=== PATIENT | female | born 1980 | race Caucasian/White ===

== ENCOUNTER → 2017-05-20 | Outpatient (CLI) | payer BC ==
[~2017-05-20] MED LIST: DOCU100C37 PO; IBUP-1780 PO; OXYC-465 PO; PREN1TAB71 PO
== END ==
LOC: LABNPT 11:16
PROVIDERS: ATTEND Obstetrics & Gynecology
DX: O28.8 Other abnormal findings on antenatal screening of mother (principal); Z3A.00 Weeks of gestation of pregnancy not specified
CPT/HCPCS: 82570; 84156

== ENCOUNTER 2017-06-07 07:25 | Inpatient (IN) | payer BC ==
[~2017-06-07] VITALS: Ht 165.1 cm; Wt 97.5 kg
[2017-06-07] VITALS (66 sets, daily range): BP systolic 100–173; BP diastolic 53–98
--- OUTSIDE RECORDS SUMMARY | 2017-06-07 07:48 | XMS REPORT ---
Author Author [facility] Organization [facility] Address [address] [place], [place] [id number] Care Team Providers Care Plant Superintendent Name Role Phone PCP Unavailable Allergies and Adverse Reactions Name Reaction Notes Augmentin yeast infection Plan of Treatment Not available. Medications Name Start Date Expiration Date SIG Comments Macrobid Oral capsule 100 mg 12/30/2012 01/06/2013 take 1 capsule (100 mg) by oral route every 12 hours with food for 7 days Discontinued Name Start Date Discontinued Date SIG Comments propranolol Oral tablet 10 mg 09/23/2012 take 1 tablet by oral route 4 times a day as needed Mirena Intrauterine IUD 20 mcg/24 hour (5 years) 06/12/2013 01/14/2015 place 1 device by intrauterine route Problem List Description Status Onset heart murmur Active Migraine Active Hypertension Active Vital Signs Date Time BP-Sys(mm[Hg] BP-Maribeth(mm[Hg]) HR(bpm) RR(rpm) Temp WT HT HC BMI BSA BMI Percentile O2 Sat(%) 01/14/2015 7:49:00 PM 79 bpm 18 rpm 98.2 F 185 lbs 100 % 09/02/2014 10:56:00 AM 145 mmHg 96 mmHg 68 bpm 98.7 F 187 lbs 65 in 31.1181 kg/m 1.9723 m 06/21/2014 3:44:00 PM 130 mmHg 89 mmHg 70 bpm 98.6 F 193 lbs 65 in 32.12 kg/m2 2.00 m2 08/04/2013 2:29:00 PM 110 mmHg 72 mmHg 71 bpm 16 rpm 97.8 F 190.375 lbs 65 in 31.68 kg/m2 1.99 m 99 % 07/27/2013 1:34:00 PM 141 mmHg 94 mmHg 68 bpm 98.6 F 191 lbs 65 in 31.7837 kg/m 1.99 m2 06/12/2013 10:37:00 AM 131 mmHg 89 mmHg 67 bpm 97.3 F 192 lbs 65 in 31.95 kg/m2 1.9985 m 06/01/2013 9:34:00 AM 132 mmHg 93 mmHg 64 bpm 97.7 F 191 lbs 65 in 31.7837 kg/m 1.99 m2 08/25/2012 11:29:00 AM 142 mmHg 85 mmHg 76 bpm 173 lbs 65 in 28.79 kg/m2 1.8971 m Social History Name Description Comments Alcohol Rarely 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 History of Procedures Date Ordered Description Order Status 08/25/2012 12:00 AM URINE TEST Reviewed 08/25/2012 12:00 AM CYTOPATH C/V THIN LAYER Returned 08/25/2012 12:00 AM SPECIMEN HANDLING OFFICE-LAB Reviewed 08/25/2012 12:00 AM N.GONORRHOEAE DNA AMP PROB Returned 08/25/2012 12:00 AM CHLAMYDIA CULTURE Returned 08/25/2012 12:00 AM OBSTETRIC PANEL Returned 08/25/2012 12:00 AM HIV-1ANTIBODY Returned 08/25/2012 12:00 AM URINALYSIS AUTO W/SCOPE Returned 08/25/2012 12:00 AM OB US < 14 WKS SINGLE FETUS Reviewed 09/24/2012 12:00 AM COMPREHEN METABOLIC PANEL Returned 09/24/2012 12:00 AM LACTATE (LD) (LDH) ENZYME Returned 09/24/2012 12:00 AM ASSAY OF PROTEIN SERUM Returned 09/24/2012 12:00 AM ASSAY OF BLOOD/URIC ACID Returned 09/24/2012 12:00 AM ELECTROCARDIOGRAM COMPLETE Reviewed 11/04/2012 12:00 AM ALPHA-FETOPROTEIN SERUM Reviewed 12/01/2012 12:00 AM OB US >/=14 WKS SNGL FETUS Returned 01/13/2013 12:00 AM OB US >/=14 WKS SNGL FETUS Returned 01/21/2013 12:00 AM GLUCOSE TEST Returned 01/21/2013 12:00 AM COMPLETE CBC W/AUTO DIFF WBC Returned 01/21/2013 12:00 AM Type and screen Returned 01/21/2013 12:00 AM COMPREHEN METABOLIC PANEL Returned 01/21/2013 12:00 AM LACTATE (LD) (LDH) ENZYME Returned 01/21/2013 12:00 AM ASSAY OF BLOOD/URIC ACID Returned 01/22/2013 12:00 AM GLUCOSE TOLERANCE TEST (GTT) Returned 03/18/2013 12:00 AM CULTURE OTHR SPECIMN AEROBIC Returned 03/30/2013 12:00 AM OB US >/=14 WKS SNGL FETUS Returned 03/31/2013 12:00 AM ASSAY OF PROTEIN SERUM Reviewed 04/13/2013 12:00 AM COMPLETE CBC W/AUTO DIFF WBC Returned 04/13/2013 12:00 AM COMPREHEN METABOLIC PANEL Returned 04/13/2013 12:00 AM ASSAY OF BLOOD/URIC ACID Returned 04/13/2013 12:00 AM LACTATE (LD) (LDH) ENZYME Returned 06/01/2013 12:00 AM N.GONORRHOEAE DNA AMP PROB Reviewed 06/01/2013 12:00 AM CHYLMD TRACH DNA AMP PROBE Reviewed 06/12/2013 12:00 AM URINE TEST Reviewed 06/12/2013 12:00 AM INSERT INTRAUTERINE DEVICE Reviewed 08/04/2013 12:00 AM METABOLIC PANEL TOTAL CA Reviewed 08/04/2013 12:00 AM COMPLETE CBC W/AUTO DIFF WBC Reviewed 08/04/2013 12:00 AM LIPID PANEL Reviewed 08/04/2013 12:00 AM ASSAY THYROID STIM HORMONE Reviewed 06/21/2014 12:00 AM SPECIMEN HANDLING OFFICE-LAB Reviewed 06/21/2014 12:00 AM CYTOPATH C/V THIN LAYER Returned 09/02/2014 12:00 AM REMOVE INTRAUTERINE DEVICE Reviewed Results Summary Data and Description Results 08/25/2012 1:24 PM WBC 8.1 RBC 4.55 HGB 13.70 g/dLHCT 38.80 %MCV 85.0 fLMCH 30.10 pgMCHC 35.30 g/dLRDW CV 12.70 %MPV 9.40 fLPLT 353 %NEUT 76.40 %%LYMP 14.30 %%MONO 6.40 %%EOS 2.40 %%BASO 0.50 %#NEUT 6.17 #LYMP 1.15 #MONO 0.52 #EOS 0.19 #BASO 0.04 COLOR YELLOW APPEARANCE CLEAR SPEC GRAV >=1.030 pH 6.0 PROTEIN 30 GLUCOSE NEGATIVE KETONE NEGATIVE BILIRUBIN NEGATIVE BLOOD NEGATIVE NITRITE NEGATIVE LEUK SCREEN NEGATIVE CASTS/LPF NEGATIVE CRYSTALS NEGATIVE MUCOUS THRDS NEGATIVE BACTERIA FEW EPITH CELLS FEW SQUAMOUS TRICHOMONAS NEGATIVE YEAST NEGATIVE ABO/Rh Type A Positive RUBELLA 18.0 IU/mLHIV AG/AB COMBO 0.17 09/24/2012 3:00 PM GLUCOSE 85.0 mg/dLSODIUM 136.0 mmol/LPOTASSIUM 4.10 mmol/ LCHLORIDE 101.0 mmol/LCO2 24.0 mmol/LBUN 10.0 mg/dLCREATININE 0.70 mg/dLSGOT/ AST 12.0 IU/LSGPT/ALT 7.0 IU/LALK PHOS 54.0 IU/LTOTAL PROTEIN 7.90 g/dLALBUMIN 4.60 g/dLTOTAL BILI 0.30 mg/dLCALCIUM 10.20 mg/dLeGFR 60 URIC ACID 4.5 mg/dLLDH 170.0 IU/L 12/30/2012 11:00 AM COLOR YELLOW APPEARANCE HAZY SPEC GRAV 1.015 pH 7.0 PROTEIN 30 GLUCOSE NEGATIVE KETONE NEGATIVE BILIRUBIN NEGATIVE BLOOD NEGATIVE NITRITE NEGATIVE LEUK SCREEN TRACE CASTS/LPF NEGATIVE CRYSTALS 1+ AMORPHOUS MUCOUS THRDS 1+ BACTERIA 2++ EPITH CELLS 1+ SQUAMOUS TRICHOMONAS NEGATIVE YEAST NEGATIVE 01/21/2013 4:00 PM ABO/Rh Type A Positive LDH 191.0 IU/LURIC ACID 4.9 mg/ dLGLUCOSE 144.0 mg/dLSODIUM 137.0 mmol/LPOTASSIUM 3.40 mmol/LCHLORIDE 103.0 mmol /LCO2 22.0 mmol/LBUN 5.0 mg/dLCREATININE 0.60 mg/dLSGOT/AST 13.0 IU/LSGPT/ALT 11.0 IU/LALK PHOS 71.0 IU/LTOTAL PROTEIN 6.10 g/dLALBUMIN 3.60 g/dLTOTAL BILI 0.20 mg/dLCALCIUM 9.20 mg/dLeGFR 60 WBC 10.7 RBC 3.88 HGB 11.80 g/dLHCT 34.40 % MCV 89.0 fLMCH 30.40 pgMCHC 34.30 g/dLRDW CV 13.60 %MPV 9.80 fLPLT 253 %NEUT 82.70 %%LYMP 11.40 %%MONO 4.20 %%EOS 1.50 %%BASO 0.20 %#NEUT 8.82 #LYMP 1.22 # MONO 0.45 #EOS 0.16 #BASO 0.02 04/03/2013 9:07 AM PROTEIN UR 26.0 mg/dLPROTEIN UR 24H 442.0 mg/24 hr 04/04/2013 8:25 PM GLUCOSE 91.0 mg/dLSODIUM 138.0 mmol/LPOTASSIUM 3.60 mmol/ LCHLORIDE 105.0 mmol/LCO2 24.0 mmol/LBUN 6.0 mg/dLCREATININE 0.70 mg/dLSGOT/AST 14.0 IU/LSGPT/ALT 9.0 IU/LALK PHOS 173.0 IU/LTOTAL PROTEIN 6.40 g/dLALBUMIN 3.20 g/dLTOTAL BILI 0.30 mg/dLCALCIUM 9.90 mg/dLeGFR 60 LDH 210.0 IU/LURIC ACID 5.6 mg/dLWBC 10.8 RBC 3.97 HGB 11.70 g/dLHCT 34.50 %MCV 87.0 fLMCH 29.50 pgMCHC 33.90 g/dLRDW CV 14.50 %MPV 10.0 fLPLT 224 %NEUT 80.30 %%LYMP 11.90 %%MONO 6.0 % %EOS 1.50 %%BASO 0.30 %#NEUT 8.71 #LYMP 1.29 #MONO 0.65 #EOS 0.16 #BASO 0.03 04/13/2013 10:33 AM WBC 8.9 RBC 4.24 HGB 12.50 g/dLHCT 36.90 %MCV 87.0 fLMCH 29.50 pgMCHC 33.90 g/dLRDW CV 14.90 %MPV 10.60 fLPLT 210 %NEUT 82.20 %%LYMP 11.10 %%MONO 5.0 %%EOS 1.50 %%BASO 0.20 %#NEUT 7.30 #LYMP 0.99 #MONO 0.44 #EOS 0.13 #BASO 0.02 URIC ACID 6.3 mg/dLLDH 165.0 IU/LGLUCOSE 105.0 mg/dLSODIUM 136.0 mmol/LPOTASSIUM 3.70 mmol/LCHLORIDE 104.0 mmol/LCO2 23.0 mmol/LBUN 6.0 mg/ dLCREATININE 0.70 mg/dLSGOT/AST 15.0 IU/LSGPT/ALT 11.0 IU/LALK PHOS 186.0 IU/ LTOTAL PROTEIN 6.70 g/dLALBUMIN 3.20 g/dLTOTAL BILI 0.40 mg/dLCALCIUM 9.40 mg/ dLeGFR 60 04/15/2013 6:45 AM WBC 9.5 RBC 4.19 HGB 12.10 g/dLHCT 36.60 %MCV 87.0 fLMCH 28.90 pgMCHC 33.10 g/dLRDW CV 15.0 %MPV 10.60 fLPLT 212 %NEUT 80.0 %%LYMP 11.0 % %MONO 7.10 %%EOS 1.50 %%BASO 0.40 %#NEUT 7.60 #LYMP 1.04 #MONO 0.67 #EOS 0.14 # BASO 0.04 ABO/Rh Type A Positive GLUCOSE 80.0 mg/dLSODIUM 138.0 mmol/LPOTASSIUM 3.80 mmol/LCHLORIDE 106.0 mmol/LCO2 22.0 mmol/LBUN 6.0 mg/dLCREATININE 0.60 mg/ dLSGOT/AST 13.0 IU/LSGPT/ALT 6.0 IU/LALK PHOS 193.0 IU/LTOTAL PROTEIN 6.30 g/ dLALBUMIN 3.20 g/dLTOTAL BILI 0.30 mg/dLCALCIUM 9.50 mg/dLeGFR 60 URIC ACID 5.2 mg/dLLDH 198.0 IU/L 04/16/2013 6:59 AM WBC 16.4 RBC 3.66 HGB 10.50 g/dLHCT 31.60 %MCV 86.0 fLMCH 28.70 pgMCHC 33.20 g/dLRDW CV 14.90 %MPV 10.40 fLPLT 228 %NEUT 91.30 %%LYMP 3.50 %%MONO 5.10 %%EOS 0.0 %%BASO 0.10 %#NEUT 15.00 #LYMP 0.58 #MONO 0.84 #EOS 0.00 #BASO 0.01 GLUCOSE 174.0 mg/dLSODIUM 137.0 mmol/LPOTASSIUM 3.60 mmol/ LCHLORIDE 106.0 mmol/LCO2 22.0 mmol/LBUN 4.0 mg/dLCREATININE 0.70 mg/dLSGOT/AST 15.0 IU/LSGPT/ALT 6.0 IU/LALK PHOS 171.0 IU/LTOTAL PROTEIN 5.40 g/dLALBUMIN 2.70 g/dLTOTAL BILI 0.50 mg/dLCALCIUM 8.0 mg/dLeGFR 60 URIC ACID 5.5 mg/dLLDH 211.0 IU/L 04/17/2013 6:35 AM WBC 11.0 RBC 3.42 HGB 9.80 g/dLHCT 30.60 %MCV 90.0 fLMCH 28.70 pgMCHC 32.0 g/dLRDW CV 15.30 %MPV 9.90 fLPLT 214 %NEUT 76.80 %%LYMP 13.40 %%MONO 6.20 %%EOS 3.10 %%BASO 0.50 %#NEUT 8.42 #LYMP 1.47 #MONO 0.68 #EOS 0.34 # BASO 0.05 08/04/2013 3:30 PM WBC 6.6 RBC 4.75 HGB 13.40 g/dLHCT 39.30 %MCV 83.0 fLMCH 28.20 pgMCHC 34.10 g/dLRDW CV 13.50 %MPV 9.30 fLPLT 321 %NEUT 64.70 %%LYMP 21.30 %%MONO 8.10 %%EOS 4.80 %%BASO 1.10 %#NEUT 4.29 #LYMP 1.41 #MONO 0.54 #EOS 0.32 #BASO 0.07 GLUCOSE 91.0 mg/dLSODIUM 139.0 mmol/LPOTASSIUM 3.80 mmol/ LCHLORIDE 104.0 mmol/LCO2 25.0 mmol/LBUN 13.0 mg/dLCREATININE 0.80 mg/dLCALCIUM 9.50 mg/dLeGFR >60 mL/min/1.73 [id number] 146.0 mg/dLCHOLESTEROL 174.0 mg/ dLHDL 56.0 mg/dLLDL (CALC) 89.0 mg/dLTSH 0.950 uIU/mL History Of Immunizations Not available. History of Past Illness Name Date of Onset Comments Hypertension heart murmur Migraine test confirmed positive Aug 25 2012 11:48AM Pelvic Pain Aug 25 2012 11:48AM Care, High Risk Sep 24 2012 2:26PM Hypertension Sep 24 2012 2:26PM , First Normal Nov 04 2012 10:54AM , First Normal Nov 04 2012 2:56PM Fetus or affected by complications of placenta, cord, and membranes; other and unspecified morphological and functional abnormalities of placenta Dec 17 2012 2:13PM Antepartum Transient Hypertension Dec 17 2012 2:13PM , First Normal Jan 21 2013 3:03PM Hypertension Jan 21 2013 3:03PM Impaired glucose tolerance test (oral) Jan 22 2013 1:42PM Group B Strep Screening, Mar 18 2013 11:19AM Hypertension Mar 23 2013 2:27PM Care, High Risk Mar 31 2013 11:02AM Hypertension Mar 31 2013 11:02AM , High Risk Apr 13 2013 10:29AM Proteinuria Apr 13 2013 10:29AM Follow-up, Routine Jun 01 2013 9:41AM Contraceptive Counseling Jun 01 2013 9:41AM Special investigations and examinations; examination or test; examination or test, negative result Jun 12 2013 11:01AM IUD insertion Jun 12 2013 10:42AM IUD Check/Removal/Management/Reinsertion Jul 27 2013 1:42PM Hypertension Aug 04 2013 2:31PM Migraine Aug 04 2013 2:31PM Preeclampsia Aug 04 2013 2:31PM Routine gynecological examination Jun 21 2014 3:53PM IUD removal Sep 02 2014 11:30AM Upper respiratory disease Jan 14 2015 7:50PM Payers Insurance Name Company Name Plan Name Plan Number Policy Number Policy Group Number Start Date [facility] [id number] N/A History of Encounters Visit Date Visit Type Provider 01/14/2015 Office visit Yvonne VALENZUELA 09/02/2014 Office visit Glenn Myers MD 06/21/2014 Office visit Yaquelin Jones HAND CLOTH CUTTER 08/04/2013 Office visit Janet Prajapati MD 07/27/2013 Office visit Glenn Myers MD 06/12/2013 Office visit Glenn Myers MD 06/01/2013 Office visit Glenn Myers MD 04/16/2013 [facility] Glenn Myers MD 04/13/2013 Office visit Yanely Park MD 04/06/2013 Office visit Glenn Myers MD 04/04/2013 [facility] Yanely Park MD 03/31/2013 Office visit Glenn Myers MD 03/23/2013 Office visit Glenn Myers MD 03/18/2013 Office visit Glenn Myers MD 03/06/2013 Office visit Yanely Park MD 02/19/2013 Office visit Glenn Myers MD 02/04/2013 Office visit Glenn Myers MD 01/21/2013 Office visit Glenn Myers MD 01/07/2013 Office visit Glenn Myers MD 12/17/2012 Office visit Glenn Myers MD 11/19/2012 Office visit Gelnn Myers MD 10/29/2012 Office visit Glenn Myers MD 10/06/2012 Office visit Glenn Myers MD 09/24/2012 Office visit Glenn Myers MD 09/24/2012 [facility] Jorge A Bowden MD 09/08/2012 Office visit Glenn Myers MD 08/25/2012 Office visit Glenn Myers MD
--- OUTSIDE RECORDS SUMMARY | 2017-06-07 07:49 | XMS REPORT ---
Author Author Glenn Myers [facility] Address [address] [place], [place] [id number] Care Team Providers Care Artillery Maintenance Supervisor Name Role Phone Glenn Myers PCP Allergies and Adverse Reactions Name Reaction Notes Augmentin yeast infection Plan of Treatment Not available. Medications Active Name Start Date Estimated Completion Date SIG Comments Diclegis 10-10 mg oral tablet,delayed release (DR/EC) 02/10/2015 take 1 tablet by oral route in the morning and 2 tablets at bedtime Name Start Date Expiration Date SIG Comments Macrobid 100 mg oral capsule 12/30/2012 01/06/2013 take 1 capsule (100 mg) by oral route every 12 hours with food for 7 days Discontinued Name Start Date Discontinued Date SIG Comments propranolol 10 mg oral tablet 09/23/2012 take 1 tablet by oral route 4 times a day as needed Mirena 20 mcg/24 hr (5 years) intrauterine intrauterine device 06/12/201301/14 place 1 device by intrauterine route Problem List Description Status Onset heart murmur Active Migraine Active Hypertension Active Vital Signs Date Time BP-Sys(mm[Hg] BP-Maribeth(mm[Hg]) HR(bpm) RR(rpm) Temp WT HT HC BMI BSA BMI Percentile O2 Sat(%) 02/10/2015 1:26:00 PM 138 mmHg 86 mmHg 70 bpm 98 F 189 lbs 65 in 31.45 kg/m2 1.98 m2 01/14/2015 7:49:00 PM 79 bpm 18 rpm [...] rpm 97.8 F 190.375 lbs 65 in 31.6797 kg/m 1.99 m 99 % 07/27/2013 1:34:00 PM 141 mmHg 94 mmHg 68 bpm 98.6 F 191 lbs 65 in 31.78 kg/m2 1.99 m2 06/12/2013 10:37:00 AM 131 mmHg 89 mmHg 67 bpm 97.3 F 192 lbs 65 in 31.9501 kg/m 1.9985 m 06/01/2013 9:34:00 AM 132 mmHg 93 mmHg 64 bpm 97.7 F 191 lbs 65 in 31.78 kg/m2 1.99 m2 08/25/2012 11:29:00 AM 142 mmHg 85 mmHg 76 bpm 173 lbs 65 in 28.7884 kg/m 1.8971 m Social History Name Description Comments Alcohol Current some day Rarely Tobacco Never smoker [employer] raise min[employer] History of Procedures Date Ordered Description Order [...] 06/12/2013 12:00 AM INSERT INTRAUTERINE DEVICE Reviewed 06/12/2013 12:00 AM Mirena Reviewed 08/04/2013 12:00 AM METABOLIC PANEL TOTAL CA Reviewed 08/04/2013 12:00 AM COMPLETE CBC W/AUTO DIFF WBC Reviewed 08/04/2013 12:00 AM LIPID PANEL Reviewed 08/04/2013 12:00 AM ASSAY THYROID STIM HORMONE Reviewed 06/21/2014 12:00 AM SPECIMEN HANDLING OFFICE-LAB Reviewed 06/21/2014 12:00 AM CYTOPATH C/V THIN LAYER Returned 09/02/2014 12:00 AM REMOVE INTRAUTERINE DEVICE Reviewed 02/10/2015 1:34 PM URINE TEST Reviewed 02/10/2015 12:00 AM N.GONORRHOEAE DNA AMP PROB Returned 02/10/2015 12:00 AM CHLAMYDIA CULTURE Returned 02/10/2015 12:00 AM HIV-1ANTIBODY Returned 02/10/2015 12:00 AM CYTOPATH C/V THIN LAYER Returned 02/10/2015 12:00 AM URINALYSIS AUTO W/SCOPE Returned 02/10/2015 12:00 AM OBSTETRIC PANEL Returned 02/10/2015 12:00 AM US PREG UTERUS REAL TIME W/IMAGE DCMTN TRANSVAG Returned 02/10/2015 12:00 AM SPECIMEN HANDLING OFFICE-LAB Reviewed 02/10/2015 12:00 AM LACTATE (LD) (LDH) ENZYME Returned 02/10/2015 12:00 AM ASSAY OF BLOOD/URIC ACID Returned 02/10/2015 12:00 AM COMPREHEN METABOLIC PANEL Returned 03/21/2015 12:00 AM ALPHA-FETOPROTEIN SERUM Returned 04/18/2015 12:00 AM ASSAY OF PROTEIN SERUM Returned 05/11/2015 12:00 AM COMPREHEN METABOLIC PANEL Returned 05/11/2015 12:00 AM ASSAY OF PROTEIN SERUM Reviewed 05/11/2015 12:00 AM ANTINUCLEAR ANTIBODIES Returned Results Summary Data and Description Results 08/25/2012 [...] mg/dLCREATININE 0.80 mg/dLCALCIUM 9.50 mg/dLeGFR >60 mL/min/1.73 [id number] 146.0 mg/dLCHOLESTEROL 174.0 mg/ dLHDL 56.0 mg/dLLDL (CALC) 89.0 mg/dLTSH 0.950 uIU/mL 09/02/2014 11:35 AM Rubella Antibodies, IgG 1.10 Index 02/10/2015 1:34 PM Test, Urine positive 02/10/2015 2:38 PM WBC 9.9 RBC 4.27 HGB 12.70 g/dLHCT 37.60 %MCV 88.0 fLMCH 29.70 pgMCHC 33.80 g/dLRDW CV 13.30 %MPV 9.30 fLPLT 308 %NEUT 76.70 %%LYMP 13.80 %%MONO 5.90 %%EOS 3.30 %%BASO 0.30 %#NEUT 7.62 #LYMP 1.37 #MONO 0.59 #EOS 0.33 #BASO 0.03 GLUCOSE 83.0 mg/dLSODIUM 137.0 mmol/LPOTASSIUM 4.30 mmol/ LCHLORIDE 104.0 mmol/LCO2 22.0 mmol/LBUN 6.0 mg/dLCREATININE 0.60 mg/dLSGOT/AST 13.0 IU/LSGPT/ALT 16.0 IU/LALK PHOS 60.0 IU/LTOTAL PROTEIN 7.20 g/dLALBUMIN 4.30 g/dLTOTAL BILI 0.50 mg/dLCALCIUM 9.60 mg/dLeGFR >60 mL/min/1.73 m2URIC ACID 4.1 mg/dLLDH 174.0 IU/LCOLOR YELLOW APPEARANCE CLEAR SPEC GRAV <=1.005 pH 6.0 PROTEIN NEGATIVE GLUCOSE NEGATIVE KETONE NEGATIVE BILIRUBIN NEGATIVE BLOOD TRACE-LYSED NITRITE NEGATIVE LEUK SCREEN NEGATIVE CASTS/LPF NEGATIVE CRYSTALS NEGATIVE MUCOUS THRDS NEGATIVE BACTERIA FEW EPITH CELLS FEW SQUAMOUS TRICHOMONAS NEGATIVE YEAST NEGATIVE RPR Non Reactive HIV AG/AB COMBO 0.09 HBsAg Screen Negative Rubella Antibodies, IgG 0.96 Index 03/21/2015 11:20 AM AFP Value 0.0204 ug/mLAFP MoM 0.85 hCG Value 36425.0 mIU/ mLhCG MoM 1.04 uE3 Value 0.820 ng/mLuE3 MoM 1.38 MARIBETH Value 817.770 pg/mLDIA MoM 4.72 [place] 1 [place] [address] DSR (Second Trimester) 1IN 50 DSR (By Age) 1 IN 428 T18 Risk Not increased T18 (By Age) 1:1667 AFP Value 0.0204 ug/mLAFP MoM 0.85 hCG Value 73513.0 mIU/mLhCG MoM 1.04 uE3 Value 0.820 ng/mLuE3 MoM 1.38 MARIBETH Value 817.770 pg/mLDIA MoM 4.72 [place] 1 [place] [address] DSR (Second Trimester ) 1IN 50 DSR (By Age) 1 IN 428 T18 Risk Not increased T18 (By Age) 1:1667 04/22/2015 1:52 PM PROTEIN UR 24.0 mg/dLPROTEIN UR 24H 384.0 mg/24 hr 05/11/2015 10:15 AM GLUCOSE 81.0 mg/dLSODIUM 138.0 mmol/LPOTASSIUM 3.90 mmol/ LCHLORIDE 106.0 mmol/LCO2 23.0 mmol/LBUN 5.0 mg/dLCREATININE 0.60 mg/dLSGOT/AST 12.0 IU/LSGPT/ALT 9.0 IU/LALK PHOS 68.0 IU/LTOTAL PROTEIN 6.50 g/dLALBUMIN 3.70 g/dLTOTAL BILI 0.30 mg/dLCALCIUM 9.0 mg/dLeGFR >60 mL/min/1.73mANA Direct Negative 05/24/2015 8:55 AM PROTEIN UR 21.0 mg/dLPROTEIN UR 24H 378.0 mg/24 hr History Of Immunizations Not available. History of [...] Upper respiratory disease Jan 14 2015 7:50PM test confirmed positive Feb 10 2015 1:34PM Essential hypertension Feb 10 2015 1:34PM , Other Normal Mar 21 2015 10:05AM , Other Normal Mar 22 2015 9:36AM Hypertension Apr 18 2015 9:37AM Proteinuria May 11 2015 10:02AM Payers Insurance Name Company Name Plan Name Plan Number Policy Number Policy Group Number Start Date [facility] [id number] N/A History of Encounters Visit Date Visit Type Provider 06/01/[address] YANDEL MINER MD 05/11/2015 Office visit Glenn Myers MD 04/18/2015 Office visit Glenn Myers MD 03/21/2015 Office visit 03/21/2015 Office visit Glenn Myers MD 02/10/2015 Office visit Glenn Myers MD 01/14/2015 Office visit Yvonne VALENZUELA 09/02/2014 Office visit Glenn Myers MD 06/21/2014 Office visit Yaquelin Jones APRN 08/04/2013 Office visit Janet Prajapati MD 07/27/2013 Office visit Glenn Myers MD 06/12/2013 Office visit Glenn Myers MD 06/01/2013 Office visit Glenn Myers MD 04/16/2013 Hospital Glenn Myers MD 04/13/2013 Office visit Yanely Park MD 04/06/2013 Office visit Glenn Myers MD 04/04/2013 [facility] Yanely Park MD 03/31/2013 Office visit Glenn Myers MD 03/23/2013 Office visit Glenn Myers MD 03/18/2013 Office visit Glenn Myers MD 03/06/2013 Office visit Yanely Park MD 02/19/2013 Office visit Glenn Myers MD 02/04/2013 Office visit Glenn Myers MD 01/21/2013 Office visit Glenn Myers MD 01/07/2013 Office visit Glenn Myers MD 12/17/2012 Office visit Glenn Myers MD 11/19/2012 Office visit Glenn Myers MD 10/29/2012 Office visit Glenn Myers MD 10/06/2012 Office visit Glenn Myers MD 09/24/2012 Office visit Glenn Myers MD 09/24/2012 Hospital Denisse Bowden MD 09/08/2012 Office visit Glenn Myers MD 08/25/2012 Office visit Glenn Myers MD
--- OUTSIDE RECORDS SUMMARY | 2017-06-07 07:49 | XMS REPORT ---
Author Author [facility] Organization [facility] Address [address] [place], [place] [id number] Care Team Providers Care Licensed Mortician Name Role Phone PCP Unavailable Allergies and Adverse Reactions Name Reaction Notes Augmentin yeast infection Plan of Treatment Planned Activity Comments Planned Date Planned Time Plan/Goal OB US >/=14 WKS SNGL FETUS 04/18/2015 12:00 AM Medications Active Name Start Date Estimated Completion Date SIG Comments Diclegis oral tablet,delayed release (DR/EC) 10-10 mg 02/10/2015 take 1 tablet by oral route [...] Current some day Rarely 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 History of Procedures Date Ordered Description Order [...] AM ALPHA-FETOPROTEIN SERUM Returned 04/18/2015 12:00 AM OB US >/=14 WKS SNGL FETUS Ordered 04/18/2015 12:00 AM ASSAY OF PROTEIN SERUM Returned Results Summary Data and Description Results [...] mg/dLCREATININE 0.80 mg/dLCALCIUM 9.50 mg/dLeGFR >60 mL/min/1.73 [id number] 146.0 mg/dLCHOLESTEROL 174.0 mg/ dLHDL 56.0 mg/dLLDL [...] Value 0.0204 ug/mLAFP MoM 0.85 hCG Value 18133.0 mIU/ mLhCG MoM 1.04 uE3 Value 0.820 ng/mLuE3 MoM 1.38 MARIBETH Value 817.770 pg/mLDIA MoM 4.72 [place] 1 [place] [address] DSR (Second Trimester) 1IN 50 DSR (By Age) 1 IN 428 T18 Risk Not increased T18 (By Age) 1:1667 AFP Value 0.0204 ug/mLAFP MoM 0.85 hCG Value 48553.0 mIU/mLhCG MoM 1.04 uE3 Value 0.820 ng/mLuE3 MoM 1.38 MARIBETH Value 817.770 pg/mLDIA MoM 4.72 [place] [address] DSR (Second Trimester ) 1IN 50 DSR (By Age) 1 IN 428 T18 Risk Not increased T18 (By Age) 1:1667 04/22/2015 1:52 PM PROTEIN UR 24.0 mg/dLPROTEIN UR 24H 384.0 mg/24 hr History Of Immunizations Not available. [...] 2015 9:36AM Hypertension Apr 18 2015 9:37AM Payers Insurance Name Company Name Plan Name Plan Number Policy Number Policy Group Number Start Date [facility] [id number] N/A History of Encounters Visit Date Visit Type Provider 05/11/2015 Office visit Glenn Myers MD 04/18/2015 Office visit Glenn Myers MD 03/21/2015 Office visit Glenn Myers MD 02/10/2015 Office visit Glenn Myers MD 01/14/2015 Office visit Yvonne VALENZUELA 09/02/2014 Office visit Glenn Myers MD 06/21/2014 Office visit Yaquelin Jones APRN 08/04/2013 Office visit Janet Prajapati MD 07/27/2013 Office visit Glenn Myers MD 06/12/2013 Office visit Glenn Myers MD 06/01/2013 Office visit Glenn Myers MD 04/16/2013 [facility] Glenn Myers MD 04/13/2013 Office visit Yanely Park MD 04/06/2013 Office visit Glenn Myers MD 04/04/2013 [facility] Yanely Park MD 03/31/2013 Office visit Glenn [...] 09/24/2012 Office visit Glenn Myers MD 09/24/2012 [facility] Denisse Bowden MD 09/08/2012 Office visit Glenn Myers MD 08/25/2012 Office visit Glenn Myers MD
--- OUTSIDE RECORDS SUMMARY | 2017-06-07 07:50 | XMS REPORT ---
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 History of Procedures Date Ordered Description Order [...] AM OBSTETRIC PANEL Returned 02/10/2015 12:00 AM SPECIMEN HANDLING OFFICE-LAB Reviewed 02/10/2015 12:00 AM LACTATE (LD) (LDH) ENZYME Returned 02/10/2015 12:00 AM ASSAY OF BLOOD/URIC ACID Returned 02/10/2015 12:00 AM COMPREHEN METABOLIC PANEL Returned 03/21/2015 12:00 AM ALPHA-FETOPROTEIN SERUM Returned Results Summary Data and Description [...] mg/dLCREATININE 0.80 mg/dLCALCIUM 9.50 mg/dLeGFR >60 mL/min/1.73 [id number] 146.0 mg/dLCHOLESTEROL 174.0 mg/ dLHDL 56.0 mg/dLLDL [...] Value 0.0204 ug/mLAFP MoM 0.85 hCG Value 38705.0 mIU/ mLhCG MoM 1.04 uE3 Value 0.820 ng/mLuE3 MoM 1.38 MARIBETH Value 817.770 pg/mLDIA MoM 4.72 OSBR [place] 1 [place] [address] DSR (Second Trimester) 1IN 50 DSR (By Age) 1 IN 428 T18 Risk Not increased T18 (By Age) 1:1667 AFP Value 0.0204 ug/mLAFP MoM 0.85 hCG Value 02175.0 mIU/mLhCG MoM 1.04 uE3 Value 0.820 ng/mLuE3 MoM 1.38 MARIBETH Value 817.770 pg/mLDIA MoM 4.72 [place] [address] DSR (Second Trimester ) 1IN 50 DSR (By Age) 1 IN 428 T18 Risk Not increased T18 (By Age) 1:1667 History Of Immunizations Not available. History of [...] , Other Normal Mar 22 2015 9:36AM Payers Insurance Name Company Name Plan Name Plan Number Policy Number Policy Group Number Start Date [facility] [id number] N/A History of Encounters Visit Date Visit Type Provider 04/18/2015 Office visit Glenn Myers MD 03/21/2015 Office visit Glenn Myers MD 02/10/2015 Office visit Glenn Myers MD 01/14/2015 Office visit Yvonne VALENZUELA 09/02/2014 Office visit Glenn Myers MD 06/21/2014 Office visit Yaquelin Jones APRN 08/04/2013 Office visit Janet Prajapati MD 07/27/2013 Office visit Glenn Myers MD 06/12/2013 Office visit Glenn Myers MD 06/01/2013 Office visit Glenn Myers MD 04/16/2013 [facility] Glenn Myers MD 04/13/2013 Office visit Yanely Park MD 04/06/2013 Office visit Glenn Myers MD 04/04/2013 [facility] Yanely Park MD 03/31/2013 Office visit [...] 09/24/2012 Office visit Glenn Myers MD 09/24/2012 [facility] Denisse Bowden MD 09/08/2012 Office visit Glenn Myers MD 08/25/2012 Office visit Glenn Myers MD
--- OUTSIDE RECORDS SUMMARY | 2017-06-07 07:50 | XMS REPORT | Referral Summary ---
Author Author [facility] Organization [facility] Address Unknown Phone Unavailable Care Team Providers Care Sheet Combining Operator Name Role Phone No PCP, Pt States PCP Encounter VC Date(s): 04/29/15 - 04/29/15 [facility] [address] [place], [place] [address] Discharge Diagnosis: Hx of preeclampsia, prior , currently Discharge Diagnosis: Abnormal multiple marker screen in fetus Discharge Disposition: 01-Home or Self Care Attending Physician: Khang Kiran MD Admitting Physician: Khang Kiran MD Referring Physician: Glenn Myers MD Vital Signs Most recent to 1 oldest [Reference Range]: Peripheral Pulse 81 bpm Rate [60-100 bpm] (04/29/15 9:10 AM) Blood Pressure 128/82 mmHg [90-140/60-90 mmHg] (04/29/15 9:10 AM) Problem List Condition Effective Dates Status Health Status Informant Abnormal multiple Active marker screen in fetus(Confirmed) Hx of preeclampsia, Active prior , currently (Confirmed) (Confirmed) 07/17/12 - 04/16/13 Resolved Allergies, Adverse Reactions, Alerts No Known Medication Allergies Medications Multivitamins with Vitamin B Complex, Vitamin C, Minerals and L- Methylfolate oral capsule 1 caps, Oral, Daily, # 30 caps, 0 Refill(s) Start Date: 04/29/15 Status: Ordered Results No data available for this section Immunizations No data available for this section Procedures No data available for this section Social History Social History Type Response Smoking Status Never smoker Assessment and Plan No data available for this section
--- OUTSIDE RECORDS SUMMARY | 2017-06-07 07:51 | XMS REPORT ---
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 History of [...] Policy Number Policy Group Number Start Date [facility] [id number] N/A History of Encounters Visit Date Visit Type Provider 02/10/2015 Office visit Glenn Myers MD 01/14/2015 Office visit Yvonne VALENZUELA 09/02/2014 Office visit Glenn Myers MD 06/21/2014 Office visit Yaquelin Jones CASE FINISHER 08/04/2013 Office visit Janet Prajapati MD 07/27/2013 [...]
--- OUTSIDE RECORDS SUMMARY | 2017-06-07 07:52 | XMS REPORT ---
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 History of Procedures Date Ordered Description Order [...] mg/dLCREATININE 0.80 mg/dLCALCIUM 9.50 mg/dLeGFR >60 mL/min/1.73 [id number] 146.0 mg/dLCHOLESTEROL 174.0 mg/ dLHDL 56.0 mg/dLLDL [...] Policy Number Policy Group Number Start Date [facility] [id number] N/A History of Encounters Visit Date Visit Type Provider 02/10/2015 Office visit Glenn Myers MD 01/14/2015 Office visit Yvonne VALENZUELA 09/02/2014 Office visit Glenn Myers MD 06/21/2014 Office visit Yaquelin Jones DEVELOPER PROVER MECHANICAL 08/04/2013 Office visit Janet Prajapati MD 07/27/2013 Office visit Glenn Myers MD 06/12/2013 Office visit Glenn Myers MD 06/01/2013 Office visit Glenn Myers MD 04/16/2013 [facility] Glenn Myers MD 04/13/2013 Office visit Yanely Park MD 04/06/2013 Office visit Glenn Myers MD 04/04/2013 [facility] Yanely Park MD 03/31/2013 Office visit Glenn Myers MD 03/23/2013 Office visit Glenn Myers MD 03/18/2013 Office visit Glenn Myers MD 03/06/2013 Office visit Yaneyl Park MD 02/19/2013 Office visit Glenn Myers MD 02/04/2013 Office visit Glenn Myers MD 01/21/2013 Office visit Glenn Myers MD 01/07/2013 Office visit Glenn Myers MD 12/17/2012 Office visit Glenn Myers MD 11/19/2012 Office visit Glenn Myers MD 10/29/2012 Office visit Glenn Myers MD 10/06/2012 Office visit Glenn Myers MD 09/24/2012 Office visit Glenn Myers MD 09/24/2012 [facility] Denisse oBwden MD 09/08/2012 Office visit Glenn Myers MD 08/25/2012 Office visit Glenn Myers MD
--- OUTSIDE RECORDS SUMMARY | 2017-06-07 07:52 | XMS REPORT ---
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 History of Procedures Date Ordered Description Order [...] mg/dLCREATININE 0.80 mg/dLCALCIUM 9.50 mg/dLeGFR >60 mL/min/1.73 [id number] 146.0 mg/dLCHOLESTEROL 174.0 mg/ dLHDL 56.0 mg/dLLDL [...] Value 0.0204 ug/mLAFP MoM 0.85 hCG Value 66060.0 mIU/ mLhCG MoM 1.04 uE3 Value 0.820 ng/mLuE3 MoM 1.38 MARIBETH Value 817.770 pg/mLDIA MoM 4.72 OSBR [place] 1 [place] [address] DSR (Second Trimester) 1IN 50 DSR (By Age) 1 IN 428 T18 Risk Not increased T18 (By Age) 1:1667 AFP Value 0.0204 ug/mLAFP MoM 0.85 hCG Value 66097.0 mIU/mLhCG MoM 1.04 uE3 Value 0.820 ng/mLuE3 MoM 1.38 MARIBETH Value 817.770 pg/mLDIA MoM 4.72 [place] 1 [place] [address] DSR (Second Trimester ) 1IN 50 DSR [...] Policy Number Policy Group Number [id number]/A History of Encounters Visit Date Visit Type Provider 06/01/[address] Louise Lao MD 05/11/2015 Office visit Glenn Myers MD [...] 04/06/2013 Office visit Glenn Myers MD 04/04/2013 [facility] Yanely Park MD 03/31/2013 Office visit [...] 09/24/2012 Office visit Glenn Myers MD 09/24/2012 [facility] Denisse Bowden MD 09/08/2012 Office visit Glenn Myers MD 08/25/2012 Office visit Glenn Myers MD
--- OUTSIDE RECORDS SUMMARY | 2017-06-07 07:53 | XMS REPORT ---
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 History of Procedures Date Ordered Description Order [...] mg/dLCREATININE 0.80 mg/dLCALCIUM 9.50 mg/dLeGFR >60 mL/min/1.73 [id number] 146.0 mg/dLCHOLESTEROL 174.0 mg/ dLHDL 56.0 mg/dLLDL [...] Value 0.0204 ug/mLAFP MoM 0.85 hCG Value 05458.0 mIU/ mLhCG MoM 1.04 uE3 Value 0.820 ng/mLuE3 MoM 1.38 MARIBETH Value 817.770 pg/mLDIA MoM 4.72 [place] 1 [place] [address] DSR (Second Trimester) 1IN 50 DSR (By Age) 1 IN 428 T18 Risk Not increased T18 (By Age) 1:1667 AFP Value 0.0204 ug/mLAFP MoM 0.85 hCG Value 41274.0 mIU/mLhCG MoM 1.04 uE3 Value 0.820 ng/mLuE3 MoM 1.38 MARIBETH Value 817.770 pg/mLDIA MoM 4.72 [place]BR [place] 1 [place] [address] DSR (Second Trimester ) 1IN 50 DSR [...] Policy Number Policy Group Number Start Date [facility] [id number] N/A History of Encounters Visit Date Visit [...] 06/01/2013 Office visit Glenn Myers MD 04/16/2013 [facility] Glenn Myers MD 04/13/2013 Office visit Yanely Park MD 04/06/2013 Office visit Glenn Myers MD 04/04/2013 [facility] Yanely Park MD 03/31/2013 Office visit [...] 09/24/2012 Office visit Glenn Myers MD 09/24/2012 [facility] Denisse Bowden MD 09/08/2012 Office visit Glenn Myers MD 08/25/2012 Office visit Glenn Myers MD
--- OUTSIDE RECORDS SUMMARY | 2017-06-07 07:54 | XMS REPORT ---
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 History of Procedures Date Ordered Description Order [...] mg/dLCREATININE 0.80 mg/dLCALCIUM 9.50 mg/dLeGFR >60 mL/min/1.73 [id number] 146.0 mg/dLCHOLESTEROL 174.0 mg/ dLHDL 56.0 mg/dLLDL [...] Value 0.0204 ug/mLAFP MoM 0.85 hCG Value 15455.0 mIU/ mLhCG MoM 1.04 uE3 Value 0.820 ng/mLuE3 MoM 1.38 MARIBETH Value 817.770 pg/mLDIA MoM 4.72 [place] 1 [place] [address] DSR (Second Trimester) 1IN 50 DSR (By Age) 1 IN 428 T18 Risk Not increased T18 (By Age) 1:1667 AFP Value 0.0204 ug/mLAFP MoM 0.85 hCG Value 50085.0 mIU/mLhCG MoM 1.04 uE3 Value 0.820 ng/mLuE3 MoM 1.38 MARIBETH Value 817.770 pg/mLDIA MoM 4.72 [place]BR [place] 1 [place] [address] DSR (Second Trimester ) 1IN 50 DSR [...] Number Policy Group Number [facility] [id number] N/A History of Encounters Visit Date Visit [...] 06/01/2013 Office visit Glenn Myers MD 04/16/2013 [facility] Glenn Myers MD 04/13/2013 Office visit Yanely Park MD 04/06/2013 Office visit Glenn Myers MD 04/04/2013 [facility] Yanely Park MD 03/31/2013 Office [...] 09/24/2012 Office visit Glenn Myers MD 09/24/2012 [facility] Denisse Bowden MD 09/08/2012 Office visit Glenn Myers MD 08/25/2012 Office visit Glenn Myers MD
--- OUTSIDE RECORDS SUMMARY | 2017-06-07 07:55 | XMS REPORT ---
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 History of [...] , Other Normal Mar 21 2015 10:05AM Payers Insurance Name Company Name Plan Name Plan Number Policy Number Policy Group Number Start Date [facility] [id number] N/A History of Encounters Visit Date Visit Type Provider 03/21/2015 Office visit Glenn Myers MD 02/10/2015 [...] 04/06/2013 Office visit Glenn Myers MD 04/04/2013 [facility] Yanely Park MD 03/31/2013 Office visit [...] 09/24/2012 Office visit Glenn Myers MD 09/24/2012 [facility] Denisse Bowden MD 09/08/2012 Office visit Glenn Myers MD 08/25/2012 Office visit Glenn Myers MD
--- OUTSIDE RECORDS SUMMARY | 2017-06-07 07:55 | XMS REPORT ---
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 History of Procedures Date Ordered Description [...] mg/dLCREATININE 0.80 mg/dLCALCIUM 9.50 mg/dLeGFR >60 mL/min/1.73 [id number] 146.0 mg/dLCHOLESTEROL 174.0 mg/ dLHDL 56.0 mg/dLLDL [...] Value 0.0204 ug/mLAFP MoM 0.85 hCG Value 28122.0 mIU/ mLhCG MoM 1.04 uE3 Value 0.820 ng/mLuE3 MoM 1.38 MARIBETH Value 817.770 pg/mLDIA MoM 4.72 [place]BR [place] 1 [place] [address] DSR (Second Trimester) 1IN 50 DSR (By Age) 1 IN 428 T18 Risk Not increased T18 (By Age) 1:1667 AFP Value 0.0204 ug/mLAFP MoM 0.85 hCG Value 74558.0 mIU/mLhCG MoM 1.04 uE3 Value 0.820 ng/mLuE3 MoM 1.38 MARIBETH Value 817.770 pg/mLDIA MoM 4.72 [place] [address] DSR (Second Trimester ) 1IN 50 DSR [...] Number Policy Group Number Start Date [facility] [id number] N/A History of Encounters Visit Date Visit [...] 06/01/2013 Office visit Glenn Myers MD 04/16/2013 [facility] Glenn Myers MD 04/13/2013 Office visit Yanely Park MD 04/06/2013 Office visit Glenn Myers MD 04/04/2013 [facility] Yanely Park MD 03/31/2013 Office visit [...] 09/24/2012 Office visit Glenn Myers MD 09/24/2012 [facility] Denisse Bowden MD 09/08/2012 Office visit Glenn Myers MD 08/25/2012 Office visit Glenn Myers MD
--- OUTSIDE RECORDS SUMMARY | 2017-06-07 07:56 | XMS REPORT ---
Author Author Louise Lao [facility] Address [address] [place], [place] [address] Care Team Providers Care Dovetailer Name Role Phone Louise Lao PCP Unavailable [...] Current some day Rarely Tobacco Never smoker [facility] body former History of Procedures Date Ordered Description Order [...] mg/dLCREATININE 0.80 mg/dLCALCIUM 9.50 mg/dLeGFR >60 mL/min/1.73 [id number] 146.0 mg/dLCHOLESTEROL 174.0 mg/ dLHDL 56.0 mg/dLLDL [...] Value 0.0204 ug/mLAFP MoM 0.85 hCG Value 26620.0 mIU/ mLhCG MoM 1.04 uE3 Value 0.820 ng/mLuE3 MoM 1.38 MARIBETH Value 817.770 pg/mLDIA MoM 4.72 [place]BR [place] 1 [place] [address] DSR (Second Trimester) 1IN 50 DSR (By Age) 1 IN 428 T18 Risk Not increased T18 (By Age) 1:1667 AFP Value 0.0204 ug/mLAFP MoM 0.85 hCG Value 84115.0 mIU/mLhCG MoM 1.04 uE3 Value 0.820 ng/mLuE3 MoM 1.38 MARIBETH Value 817.770 pg/mLDIA MoM 4.72 OSBR [place] 1 [place] [address] DSR (Second Trimester ) 1IN 50 DSR [...] Policy Number Policy Group Number [id number] N/A History of Encounters Visit Date Visit [...] 04/06/2013 Office visit Glenn Myers MD 04/04/2013 [facility] Yanely Park MD 03/31/2013 Office visit [...] 09/24/2012 Office visit Glenn Myers MD 09/24/2012 [facility] Denisse Bowden MD 09/08/2012 Office visit Glenn Myers MD 08/25/2012 Office visit Glenn Myers MD
--- OUTSIDE RECORDS SUMMARY | 2017-06-07 07:57 | XMS REPORT ---
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 History of Procedures Date Ordered Description [...] OF BLOOD/URIC ACID Returned 02/10/2015 12:00 AM [facility] METABOLIC PANEL Returned Results Summary Data and [...] mg/dLCREATININE 0.80 mg/dLCALCIUM 9.50 mg/dLeGFR >60 mL/min/1.73 [id number] 146.0 mg/dLCHOLESTEROL 174.0 mg/ dLHDL 56.0 mg/dLLDL [...] 1:34PM Essential hypertension Feb 10 2015 1:34PM Payers Insurance Name Company Name Plan Name Plan Number Policy Number Policy Group Number [id number] N/A History of Encounters Visit Date Visit [...] 04/06/2013 Office visit Glenn Myers MD 04/04/2013 [facility] Yanely Park MD 03/31/2013 Office visit [...] 09/24/2012 Office visit Glenn Myers MD 09/24/2012 [facility] Denisse Bowden MD 09/08/2012 Office visit Glenn Myers MD 08/25/2012 Office visit Glenn Myers MD
--- OUTSIDE RECORDS SUMMARY | 2017-06-07 07:58 | XMS REPORT ---
Author Author [facility] Organization [facility] Address [address] [place], [place] [phone] Care Team Providers Care Director Independent Name Role Phone PCP Unavailable Allergies and Adverse Reactions Name Reaction Notes Augmentin yeast infection Plan of Treatment Planned Activity Comments Planned Date Planned Time Plan/Goal OB US >/=14 WKS SNGL FETUS 04/18/2015 12:00 AM COMPREHEN METABOLIC PANEL 05/11/2015 12:00 AM ASSAY OF PROTEIN SERUM 05/11/2015 12:00 AM ANTINUCLEAR ANTIBODIES 05/11/2015 12:00 AM Medications Active Name Start Date [...] day Rarely Tobacco Never smoker [facility]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 History of Procedures Date Ordered Description Order [...] Returned 05/11/2015 12:00 AM COMPREHEN METABOLIC PANEL Ordered 05/11/2015 12:00 AM ASSAY OF PROTEIN SERUM Ordered 05/11/2015 12:00 AM ANTINUCLEAR ANTIBODIES Ordered Results Summary Data and Description Results 08/25/2012 [...] mg/dLCREATININE 0.80 mg/dLCALCIUM 9.50 mg/dLeGFR >60 mL/min/1.73 [id number] 146.0 mg/dLCHOLESTEROL 174.0 mg/ dLHDL 56.0 mg/dLLDL [...] Value 0.0204 ug/mLAFP MoM 0.85 hCG Value 47619.0 mIU/ mLhCG MoM 1.04 uE3 Value 0.820 ng/mLuE3 MoM 1.38 MARIBETH Value 817.770 pg/mLDIA MoM 4.72 [place]BR [place] 1 [place] [address] DSR (Second Trimester) 1IN 50 DSR (By Age) 1 IN 428 T18 Risk Not increased T18 (By Age) 1:1667 AFP Value 0.0204 ug/mLAFP MoM 0.85 hCG Value 53406.0 mIU/mLhCG MoM 1.04 uE3 Value 0.820 ng/mLuE3 MoM 1.38 MARIBETH Value 817.770 pg/mLDIA MoM 4.72 [place]BR [place] 1 [place] [address] DSR (Second Trimester ) 1IN 50 DSR [...] Policy Number Policy Group Number [facility] [id number] N/A History of Encounters Visit Date Visit [...] 04/06/2013 Office visit Glenn Myers MD 04/04/2013 [facility] Yanely Park MD 03/31/2013 Office [...] 09/24/2012 Office visit Glenn Myers MD 09/24/2012 [facility] Denisse Bowden MD 09/08/2012 Office visit Glenn Myers MD 08/25/2012 Office visit Glenn Myers MD
--- OUTSIDE RECORDS SUMMARY | 2017-06-07 07:59 | XMS REPORT | Referral Summary ---
Author Author [facility] Organization [facility] Address Unknown Phone Unavailable Care Team Providers Care Property Disposal Officer Name Role Phone No PCP, Pt States PCP Encounter VC Date(s): 05/27/15 - 05/27/15 [facility] [address] [place], [place] [address] Discharge Diagnosis: Hx of preeclampsia, prior , currently Discharge Disposition: 01-Home or Self Care Attending Physician: Khnag Kiran MD Admitting Physician: Khang Kiran MD Referring Physician: Glenn Myers MD Vital Signs Most recent to 1 oldest [Reference Range]: Peripheral Pulse 77 bpm Rate [60-100 bpm] (05/27/15 10:05 AM) Blood Pressure 116/77 mmHg [90-140/60-90 mmHg] (05/27/15 10:05 AM) Problem List Condition Effective Dates Status [...] Smoking Status Never smoker Assessment and Plan Extracted from: Title: Office Visit Note Author: Khang Kiran MD Date: 05/27/15 Assessment/Plan Hx of preeclampsia, prior , currently I discussed with the patient that I would recommend she check her blood pressures at home once a day or every other day and keep a log of her blood pressure 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 At this present time, I would not twisting frame changer based on the presence of mildproteinuria. It would be reasonable to increase the frequency of visitsto every other week for closer evaluation because of the potential fordevelopment ofpreeclampsia. Thank you for allowing me to participate in this patient's care and evaluation. I spent5 minutes [id number] with the patient at the time of this appointment of which greater than 50 percent was spent counseling and coordinating care.
--- OUTSIDE RECORDS SUMMARY | 2017-06-07 07:59 | XMS REPORT ---
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 History of Procedures Date Ordered Description Order [...] mg/dLCREATININE 0.80 mg/dLCALCIUM 9.50 mg/dLeGFR >60 mL/min/1.73 [id number] 146.0 mg/dLCHOLESTEROL 174.0 mg/ dLHDL 56.0 mg/dLLDL [...] Value 0.0204 ug/mLAFP MoM 0.85 hCG Value 34362.0 mIU/ mLhCG MoM 1.04 uE3 Value 0.820 ng/mLuE3 MoM 1.38 MARIBETH Value 817.770 pg/mLDIA MoM 4.72 [place] 1 [place] [address] DSR (Second Trimester) 1IN 50 DSR (By Age) 1 IN 428 T18 Risk Not increased T18 (By Age) 1:1667 AFP Value 0.0204 ug/mLAFP MoM 0.85 hCG Value 73649.0 mIU/mLhCG MoM 1.04 uE3 Value 0.820 ng/mLuE3 MoM 1.38 MARIBETH Value 817.770 pg/mLDIA MoM 4.72 [place] 1 [place] [address] DSR (Second Trimester ) 1IN 50 DSR [...] Policy Number Policy Group Number Start Date [facility] [id number] N/A History of Encounters Visit Date Visit [...] 06/01/2013 Office visit Glenn Myers MD 04/16/2013 [facility] Glenn Myers MD 04/13/2013 Office visit Yanely Park MD 04/06/2013 Office visit Glenn Myers MD 04/04/2013 [facility] Yanely Park MD 03/31/2013 Office [...] 09/24/2012 Office visit Glenn Myers MD 09/24/2012 [facility] Denisse Bowden MD 09/08/2012 Office visit Glenn Myers MD 08/25/2012 Office visit Glenn Myers MD
--- OUTSIDE RECORDS SUMMARY | 2017-06-07 08:01 | XMS REPORT ---
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 History of Procedures Date Ordered Description Order [...] mg/dLCREATININE 0.80 mg/dLCALCIUM 9.50 mg/dLeGFR >60 mL/min/1.73 [id number] 146.0 mg/dLCHOLESTEROL 174.0 mg/ dLHDL 56.0 mg/dLLDL [...] Value 0.0204 ug/mLAFP MoM 0.85 hCG Value 86722.0 mIU/ mLhCG MoM 1.04 uE3 Value 0.820 ng/mLuE3 MoM 1.38 MARIBETH Value 817.770 pg/mLDIA MoM 4.72 [place] 1 [place] [address] DSR (Second Trimester) 1IN 50 DSR (By Age) 1 IN 428 T18 Risk Not increased T18 (By Age) 1:1667 AFP Value 0.0204 ug/mLAFP MoM 0.85 hCG Value 39656.0 mIU/mLhCG MoM 1.04 uE3 Value 0.820 ng/mLuE3 MoM 1.38 MARIBETH Value 817.770 pg/mLDIA MoM 4.72 [place] 1 [place] [address] DSR (Second Trimester ) 1IN 50 DSR [...] Policy Number Policy Group [id number] N/A History of Encounters Visit Date Visit [...] 04/06/2013 Office visit Glenn Myers MD 04/04/2013 [facility] Yanely Park MD 03/31/2013 Office visit Glenn [...] 09/24/2012 Office visit Glenn Myers MD 09/24/2012 [facility] Denisse Bowden MD 09/08/2012 Office visit Glenn Myers MD 08/25/2012 Office visit Glenn Myers MD
--- OUTSIDE RECORDS SUMMARY | 2017-06-07 08:01 | XMS REPORT ---
Author Author [facility] Organization [facility] Address [address] [place], [place] [phone] Care Team Providers Care Garden Labourer Name Role Phone PCP Unavailable Allergies and Adverse Reactions Name Reaction Notes Augmentin yeast infection Plan of Treatment Planned Activity Comments Planned Date Planned Time Plan/Goal N.GONORRHOEAE DNA AMP PROB 02/10/2015 12:00 AM CHLAMYDIA CULTURE 02/10/2015 12:00 AM HIV-1ANTIBODY 02/10/2015 12:00 AM CYTOPATH C/V THIN LAYER 02/10/2015 12:00 AM URINALYSIS AUTO W/SCOPE 02/10/2015 12:00 AM OBSTETRIC PANEL 02/10/2015 12:00 AM TRANSVAGINAL US OBSTETRIC 02/10/2015 12:00 AM LACTATE (LD) (LDH) ENZYME 02/10/2015 12:00 AM ASSAY OF BLOOD/URIC ACID 02/10/2015 12:00 AM COMPREHEN METABOLIC PANEL 02/10/2015 12:00 AM Medications Active Name Start Date [...] Alcohol Rarely Tobacco Never smoker [facility]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 History of Procedures Date Ordered Description Order [...] mg/dLCREATININE 0.80 mg/dLCALCIUM 9.50 mg/dLeGFR >60 mL/min/1.73 [id number] 146.0 mg/dLCHOLESTEROL 174.0 mg/ dLHDL 56.0 mg/dLLDL [...] Policy Number Policy Group Number [id number]/A History of Encounters Visit Date Visit Type Provider 02/10/2015 Office visit Glenn Myers MD 01/14/2015 Office visit Yvonne VALENZUELA 09/02/2014 Office visit Glenn Myers MD 06/21/2014 Office visit Yaquelin Jones SILK HANGER 08/04/2013 Office visit Janet Prajapati MD 07/27/2013 Office visit Glenn Myers MD 06/12/2013 Office visit Glenn Myers MD 06/01/2013 Office visit Glenn Myers MD 04/16/2013 [facility] Glenn Myers MD 04/13/2013 Office visit Yanely Park MD 04/06/2013 Office visit Glenn Myers MD 04/04/2013 [facility] Yanely Park MD 03/31/2013 Office visit Glenn Myers MD 03/23/2013 Office visit Glenn Myers MD 03/18/2013 Office visit Glenn Myers MD 03/06/2013 Office visit Yanely Park MD 02/19/2013 Office visit Glnen Myers MD 02/04/2013 Office visit Glenn Myers MD 01/21/2013 Office visit Glenn Myers MD 01/07/2013 Office visit Glenn Myers MD 12/17/2012 Office visit Glenn Myers MD 11/19/2012 Office visit Glenn Myers MD 10/29/2012 Office visit Glenn Myers MD 10/06/2012 Office visit Glenn Myers MD 09/24/2012 Office visit Glenn Myers MD 09/24/2012 [facility] Denisse Bowden MD 09/08/2012 Office visit Glenn Myers MD 08/25/2012 Office visit Glenn Myers MD
--- OUTSIDE RECORDS SUMMARY | 2017-06-07 08:02 | XMS REPORT ---
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
--- OUTSIDE RECORDS SUMMARY | 2017-06-07 08:03 | XMS REPORT ---
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
--- OUTSIDE RECORDS SUMMARY | 2017-06-07 08:04 | XMS REPORT ---
Author Author Louise Lao [facility] Address [address] [place], [place] [phone] Care Team Providers Care Faculty Instructor Name Role Phone Louise Lao PCP Unavailable [...] Current some day Rarely Tobacco Never smoker [facility] [employer] [facility] lead former History of Procedures Date Ordered Description [...] mg/dLCREATININE 0.80 mg/dLCALCIUM 9.50 mg/dLeGFR >60 mL/min/1.73 [id number] 146.0 mg/dLCHOLESTEROL 174.0 mg/ dLHDL 56.0 mg/dLLDL [...] Value 0.0204 ug/mLAFP MoM 0.85 hCG Value 62018.0 mIU/ mLhCG MoM 1.04 uE3 Value 0.820 ng/mLuE3 MoM 1.38 MARIBETH Value 817.770 pg/mLDIA MoM 4.72 [place] [address] DSR (Second Trimester) 1IN 50 DSR (By Age) 1 IN 428 T18 Risk Not increased T18 (By Age) 1:1667 AFP Value 0.0204 ug/mLAFP MoM 0.85 hCG Value 73552.0 mIU/mLhCG MoM 1.04 uE3 Value 0.820 ng/mLuE3 MoM 1.38 MARIBETH Value 817.770 pg/mLDIA MoM 4.72 [place] [address] DSR (Second Trimester ) 1IN 50 DSR [...] Policy Number Policy Group Number [id number]A History of Encounters Visit Date Visit [...] visit Glenn Myers MD 06/12/2013 Office visit Glnen Myers MD 06/01/2013 Office visit Glenn Myers [...]
--- OUTSIDE RECORDS SUMMARY | 2017-06-07 08:05 | XMS REPORT ---
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 History of Procedures Date Ordered Description Order [...] mg/dLCREATININE 0.80 mg/dLCALCIUM 9.50 mg/dLeGFR >60 mL/min/1.73 [id number] 146.0 mg/dLCHOLESTEROL 174.0 mg/ dLHDL 56.0 mg/dLLDL [...] Value 0.0204 ug/mLAFP MoM 0.85 hCG Value 19922.0 mIU/ mLhCG MoM 1.04 uE3 Value 0.820 ng/mLuE3 MoM 1.38 MARIBETH Value 817.770 pg/mLDIA MoM 4.72 [place] [address] DSR (Second Trimester) 1IN 50 DSR (By Age) 1 IN 428 T18 Risk Not increased T18 (By Age) 1:1667 AFP Value 0.0204 ug/mLAFP MoM 0.85 hCG Value 58252.0 mIU/mLhCG MoM 1.04 uE3 Value 0.820 ng/mLuE3 MoM 1.38 MARIBETH Value 817.770 pg/mLDIA MoM 4.72 [place] [address] DSR (Second Trimester ) 1IN 50 DSR [...] Number Policy Group Number [id number] N/A History of Encounters Visit Date Visit [...] 06/01/2013 Office visit Glenn Myers MD 04/16/2013 [facility] Glenn Myers MD 04/13/2013 Office visit Yanely Park MD 04/06/2013 Office visit Glenn Myers MD 04/04/2013 [facility] Yanely Park MD 03/31/2013 Office visit [...] 09/24/2012 Office visit Glenn Myers MD 09/24/2012 [facility] Denisse Bowden MD 09/08/2012 Office visit Glenn Myers MD 08/25/2012 Office visit Glenn Myers MD
[2017-06-07 09:00] LABS: PROTEIN/CREATININE RATIO 0.43
[2017-06-07] MEDS ORDERED: OXYTOCIN/NORMAL SALINE 500 ML IV SCH ×2 (09:00→11:27)
[2017-06-07] MEDS ORDERED: OXYTOCIN/NORMAL SALINE 500 ML IV ONE (09:04)
[2017-06-07] MEDS ORDERED: D5 LR IV SOLUTION 1,000 ML IV ONE (09:04)
[2017-06-07 09:08] LABS: BASOPHILS % (AUTO) 0 % (0-10); EOSINOPHILS # (AUTO) 0.1 10^3/uL (0.0-0.3); EOSINOPHILS % (AUTO) 1 % (0-10); LYMPHOCYTES # (AUTO) 1.1 X 10^3 (1.0-4.0); LYMPHOCYTES % (AUTO) 12 % (12-44); MEAN CORPUSCULAR HEMOGLOBIN 29 PG (25-34); MEAN CORPUSCULAR HGB CONC 34 G/DL (32-36); MEAN CORPUSCULAR VOLUME 86 FL (80-99); MEAN PLATELET VOLUME 10.5 FL (7.4-10.4); MONOCYTES # (AUTO) 0.7 X 10^3 (0.0-1.0); MONOCYTES % (AUTO) 8 % (0-12); NEUTROPHILS # (AUTO) 7.5 X 10^3 (1.8-7.8); NEUTROPHILS % (AUTO) 79 % (42-75); PLATELET COUNT 253 10^3/uL (130-400); RED BLOOD COUNT 4.33 10^6/uL (4.35-5.85); RED CELL DISTRIBUTION WIDTH 15.1 % (10.0-14.5); WHITE BLOOD COUNT 9.5 10^3/uL (4.3-11.0)
[2017-06-07] MEDS: D5 LR IV SOLUTION 1,000 ML IV SCH ×2 (09:30→18:00)
--- NOTE | 2017-06-07 11:25 | History & Physical ---
History and Physical Date Seen by Provider: Jun 07, 2017 Time Seen by Provider: 11:23 this patient is a 36-year-old white female admitted now 38+ weeks gestation for induction of labor secondary to renal disease resulting and hyperproteinemia. Her has otherwise been uncomplicated. Her GBS culture was negative. She denies rupture membranes or bleeding. Allergies are none Medications are vitamins Past medical history, past surgical history, obstetric history, family history, and social histories are per the antepartum record HEENT exam is normal Neck is supple no lymphadenopathy no thyromegaly Abdomen is gravid soft nontender nondistended Extreme show clubbing or cyanosis. There is no Homans sign. Pelvic exam reveals a cervix between 1 and 2 cm dilated 5070 percent effaced 0- 1 station vertex presentation with intact membranes. They are ruptured artificially releasing clear fluid. monitor shows occasional contractions with normal heart rate pattern Lab work is as follows Laboratory Tests Test 06/07/17 07:45 06/07/17 08:05 Range/Units Urine Protein 26 H 6-12 MG/DL Urine Creatinine 60 30-125 MG/DL Urine Protein/Creatinine Ratio 0.43 White Blood Count 9.5 4.3-11.0 10^3/uL Red Blood Count 4.33 L 4.35-5.85 10^6/uL Hemoglobin 12.6 11.5-16.0 G/DL Hematocrit 37 35-52 % Mean Corpuscular Volume 86 80-99 FL Mean Corpuscular Hemoglobin 29 25-34 PG Mean Corpuscular Hemoglobin Concent 34 32-36 G/DL Red Cell Distribution Width 15.1 H 10.0-14.5 % Platelet Count 253 130-400 10^3/uL Mean Platelet Volume 10.5 H 7.4-10.4 FL Neutrophils (%) (Auto) 79 H 42-75 % Lymphocytes (%) (Auto) 12 12-44 % Monocytes (%) (Auto) 8 0-12 % Eosinophils (%) (Auto) 1 0-10 % Basophils (%) (Auto) 0 0-10 % Neutrophils # (Auto) 7.5 1.8-7.8 X 10^3 Lymphocytes # (Auto) 1.1 1.0-4.0 X 10^3 Monocytes # (Auto) 0.7 0.0-1.0 X 10^3 Eosinophils # (Auto) 0.1 0.0-0.3 10^3/uL Basophils # (Auto) 0.0 0.0-0.1 10^3/uL assessment and plan term with elevated urine protein. Patient is admitted for induction of labor we anticipate a vaginal delivery. Her survey engineer will be counseled regarding use of nonsteroidal anti-inflammatory medications after delivery. term with proteinuria admitted for induction of labor Allergies and Home Medications Allergies Coded Allergies: No Known Drug Allergies (Unverified , 08/24/15) Home Medications Docusate Sodium 100 Mg Capsule, 100 MG PO BID, #60 Prescribed by: BEATRICE HUYNH on 08/25/15 0723 Ibuprofen 800 Mg Tablet, 800 MG PO Q6H, #60 Prescribed by: BEATRICE HUYNH on 08/25/15 0723 Oxycodone HCl/Acetaminophen 1 Each Tablet, 1 TAB PO Q4H PRN for PAIN, #60 Prescribed by: BEATRICE HUYNH on 08/25/15 0723 Vit/Iron Fumarate/FA 1 Each Tablet, 1 EACH PO DAILY, (Reported) Clinical Quality Measures DVT/VTE Risk/Contraindication: Risk Factor Score Per Nursin RFS Level Per Nursing on Admit: 2=Moderate BEATRICE HUMMEL MD Jun 07, 2017 11:25 am
[2017-06-07] MEDS ORDERED: MEASLES,MUMPS,RUBELLA 1 EA INJ SC ONE (11:30)
[2017-06-07] MEDS ORDERED: TETANUS,DIPTH,PERTUSS P/F (BOOSTRIX) 0.5 ML VIAL IM ONE (11:30)
[2017-06-07] MEDS ORDERED: BENZOCAINE/MENTHOL (DERMOPLAST) 56 ML CAN TP PRN (11:30)
[2017-06-07] MEDS ORDERED: KETOROLAC 30 MG/ML VIAL IV SCH (12:00)
[2017-06-07] MEDS ORDERED: CATHETER FLUSH 10 ML SYR IV SCH (14:00)
[2017-06-07] MEDS ORDERED: LIDOCAINE/EPI 2% 1:200,00 (XYLOCAINE) 10 ML VIAL ONE (19:28)
[2017-06-07] MEDS ORDERED: SUFENTA 0.6MCG/ML BUPIVA 0.125 100 ML ONE (19:29)
[2017-06-07] MEDS ORDERED: BUPIVACAINE 0.25% 30 ML (SENSORCAINE) VIAL ONE (20:07)
[2017-06-07] MEDS ORDERED: fentaNYL INJECTION 100 MCG/2 ML AMP ONE (20:08)
[2017-06-07] MEDS ORDERED: LACTATED RINGERS 1,000 ML IV SCH (20:43)
[2017-06-07] MEDS ORDERED: METOCLOPRAMIDE INJ 10 MG/2 ML (REGLAN) IV PRN (20:45)
[2017-06-07] MEDS ORDERED: ONDANSETRON 4 MG/2 ML (SDV) Z0FRAN IV PRN (20:45)
[2017-06-07] MEDS ORDERED: EPIDURAL (SUFENTA 0.6MCG/ML BUPIVA 0.125%) 100 ML BAG EPI PRN (20:45)
[2017-06-07] MEDS ORDERED: NALOXONE 0.4 MG/ML 1 ML (NARCAN) VIAL IV PRN ×2 (20:45)
[2017-06-07] MEDS ORDERED: diphenhydrAMINE 50 MG/ML INJ (BENADRYL) IV PRN (20:45)
[2017-06-07] MEDS ORDERED: KETOROLAC 30 MG/ML VIAL ONE (23:36)
[2017-06-07] MEDS: DOCUSATE SODIUM 100 MG (COLACE) CAP PO SCH (23:49)
[2017-06-08 02:00] VITALS: BP 113/72
--- NOTE | 2017-06-08 06:05 | OPERATIVE REPORT ---
DATE OF SERVICE: 06/07/2017 DELIVERY NOTE: The patient delivered by term spontaneous vaginal delivery a viable female infant with Apgars of 9 and 10 at 1 and 5 minutes. Expected weight is pending. time was 2129. Cord blood pH was 7.24. The patient delivered over a first-degree perineal laceration under epidural analgesia. The infant was bulb suctioned on delivery of the head and again on completion of delivery. The umbilical cord was doubly clamped. Father cut the cord. The baby was passed to mom's abdomen. The placenta delivered spontaneously Mckeon. It was normal with a 3-vessel cord. The cervix, vagina, rectum and perineum were examined and found intact, except for a somewhat circumferential posterior fourchette laceration of a first-degree nature. It was repaired with a single suture of 3-0 Vicryl Rapide under the epidural. Hemostasis was complete. Sponge and needle counts were correct on completion of the delivery and the repair. Estimated blood loss was around 200 mL for the delivery. The patient tolerated delivery and remained in the LDR for recovery. The baby remained with the mom. Job ID: [id number] DocumentID: [id number] Dictated Date: 06/07/2017 22:36:34 Fretted Instrument Repairer Date: 06/08/2017 02:12:06 Dictated By: BEATRICE HUMMEL MD
[2017-06-08 06:20] VITALS: BP 118/78
[2017-06-08] MEDS: IBUPROFEN 800 MG (MOTRIN) TAB PO PRN ×3 (06:34→19:50)
--- NOTE | 2017-06-08 07:02 | Progress Note-Standard ---
Standard Progress Note Progress Notes/Assess & Plan Date Seen by Provider: Jun 08, 2017 Time Seen by Provider: 07:01 Progress/Assessment & Plan this patient is without complaint. She is ambulating, voiding, mobile, has good pain control. Patient denies chest pain, denies shortness of breath, denies nausea vomiting. Vital Signs Date Time Temp Pulse Resp B/P (MAP) Pulse Ox O2 Delivery O2 Flow Rate FiO2 06/08/17 06:20 98.6 98 18 118/78 97 Room Air 06/08/17 02:00 99.8 88 18 113/72 97 Room Air 06/07/17 22:45 99.4 84 18 122/57 Room Air 06/07/17 22:30 99.1 89 18 120/58 Room Air 06/07/17 22:15 99.0 83 18 120/53 Room Air 06/07/17 22:00 99.1 90 18 128/59 Room Air 06/07/17 21:45 99.1 85 18 123/67 Room Air 06/07/17 21:29 13 18 100/55 99 Room Air 06/07/17 21:15 91 18 111/70 99 Room Air 06/07/17 21:00 78 18 111/62 99 Room Air 06/07/17 20:55 72 18 117/66 99 Room Air 06/07/17 20:50 85 18 113/67 99 Room Air 06/07/17 20:45 98 18 115/68 99 Room Air 06/07/17 20:41 89 18 114/61 99 Room Air 06/07/17 20:38 89 18 131/67 99 Room Air 06/07/17 20:35 88 18 145/77 99 Room Air 06/07/17 20:32 82 18 159/93 99 Room Air 06/07/17 20:30 98 18 148/89 99 Room Air 06/07/17 20:29 18 99 Room Air 06/07/17 20:26 88 18 146/90 99 Room Air 06/07/17 20:23 94 18 159/93 99 Room Air 06/07/17 20:15 75 18 125/68 Room Air 06/07/17 20:00 85 18 154/87 Room Air 06/07/17 19:45 75 18 139/89 Room Air 06/07/17 19:30 78 18 159/98 Room Air 06/07/17 19:15 75 18 154/91 Room Air 06/07/17 19:00 80 18 172/91 Room Air 06/07/17 18:45 73 18 141/85 Room Air 06/07/17 18:30 71 18 128/76 Room Air 06/07/17 18:15 74 18 133/75 Room Air 06/07/17 18:00 72 18 128/76 Room Air 17 17:45 73 18 122/75 Room Air 06/07/17 17:30 75 18 125/89 Room Air 06/07/17 17:15 79 18 119/84 Room Air 06/07/17 17:00 97.4 75 18 120/73 Room Air 06/07/17 16:45 73 18 122/83 Room Air 06/07/17 16:30 82 18 120/93 Room Air 06/07/17 16:15 82 18 139/64 Room Air 06/07/17 16:00 78 18 139/77 Room Air 06/07/17 15:45 78 18 129/81 Room Air 06/07/17 15:30 82 18 121/81 Room Air 06/07/17 15:15 74 18 119/77 Room Air 06/07/17 15:00 76 18 124/76 Room Air 06/07/17 14:45 79 18 124/73 Room Air 06/07/17 14:30 75 18 134/81 Room Air 06/07/17 14:15 76 18 138/81 Room Air 06/07/17 14:00 75 18 130/87 Room Air 06/07/17 13:45 81 18 130/86 Room Air 06/07/17 13:30 68 18 138/85 Room Air 06/07/17 13:15 75 18 138/90 Room Air 06/07/17 13:00 77 18 136/90 Room Air 06/07/17 12:45 69 18 134/82 Room Air 06/07/17 12:30 78 18 121/70 Room Air 06/07/17 12:15 100 18 173/96 Room Air 17 12:00 71 18 123/82 Room Air 1517 11:45 75 18 123/78 Room Air 15/17 11:30 67 18 123/78 Room Air 1517 11:15 80 18 119/80 Room Air 17 11:00 75 18 114/71 Room Air 06/07/17 10:45 73 18 125/75 Room Air 06/07/17 10:30 73 18 129/81 Room Air 06/07/17 10:15 73 18 117/71 Room Air 06/07/17 10:00 73 18 122/76 Room Air 06/07/17 09:45 73 18 122/76 Room Air 06/07/17 09:30 75 18 126/79 Room Air 06/07/17 09:00 80 18 122/81 Room Air 06/07/17 08:45 82 18 134/83 Room Air 06/07/17 08:30 88 18 130/76 Room Air 06/07/17 08:00 97.5 81 20 128/89 Room Air vital signs are stable. Patient is afebrile. Fundus is firm below the umbilicus nontender. Extremities show no clubbing cyanosis. There is no Homans sign. There is some pretibial pitting edema that is normal. Assessment and plan day number 1 status post term spontaneous vaginal delivery doing well. Plan is for routine convalescence care today and consider discharge home tomorrow BEATRICE HUMMEL MD Jun 08, 2017 7:02 am
[2017-06-08] MEDS ORDERED: OXYC-465 PO (07:09)
[2017-06-08] MEDS ORDERED: DOCU100C37 PO (07:09)
--- NOTE | 2017-06-08 07:10 | Discharge Instructions ---
Discharge Instructions Discharge Medications New, Converted or Re-Newed RX: RX on Chart Patient Instructions Patient Instructions: as directed Return to The Hospital For: as directed Activity & Diet Discharge Diet: No Restrictions Activity as Tolerated: No Orders-Post D/C & Referrals Follow Up Appt: Call to make follow up appt. for patient in 4 weeks. Activity Per routine post vaginal delivery instructions. Diet as tolerated Patient may shower or tub bathe as desired. BEATRICE HUMMEL MD Jun 08, 2017 7:10 am
[2017-06-08 08:09] VITALS: BP 117/73
[2017-06-08] MEDS: DOCUSATE SODIUM 100 MG (COLACE) CAP PO SCH ×2 (08:09→19:50)
[2017-06-08] MEDS: oxyCODONE/APAP 10/325MG (PERCOCET 10) TABLET PO PRN ×2 (10:30→17:10)
[2017-06-08 13:45] VITALS: BP 127/83
--- NOTE | 2017-06-08 15:46 | Anesthesia-Regional Post-Op ---
Regional Patient Condition Mental Status: Alert, Oriented x3 Circulation: Same as Pre-Op Headache: Absent Sensation: Full Recovery Motor Block: Absent Post Op Complications Complications None Follow Up Care/Instructions Patient Instructions None needed. Anesthesia/Patient Condition Patient is doing well, no complaints, stable vital signs, no apparent adverse anesthesia problems. No complications reported per nursing. GIANFRANCO ROWE CRNA Jun 08, 2017 15:46
[2017-06-08 19:55] VITALS: BP 114/80
[2017-06-09 01:59] VITALS: BP 117/82
[2017-06-09] MEDS: IBUPROFEN 800 MG (MOTRIN) TAB PO PRN ×2 (01:59→09:07)
[2017-06-09 08:37] VITALS: BP 113/77
[2017-06-09] MEDS ORDERED: TETANUS,DIPTH,PERTUSS P/F (BOOSTRIX) 0.5 ML VIAL IM ONE (08:55)
[2017-06-09] MEDS: DOCUSATE SODIUM 100 MG (COLACE) CAP PO SCH (09:06)
--- NOTE | 2017-06-09 09:42 | Progress Note-Standard ---
Standard Progress Note Progress Notes/Assess & Plan Date Seen by Provider: Jun 09, 2017 Time Seen by Provider: 09:41 Progress/Assessment & Plan this patient is without complaint. She is ambulating, voiding, mobile, has good pain control. Patient denies chest pain, denies shortness of breath, denies nausea vomiting. Vital Signs Date Time Temp Pulse Resp B/P (MAP) Pulse Ox O2 Delivery O2 Flow Rate FiO2 06/08/17 06:20 98.6 98 18 118/78 97 Room Air 06/08/17 02:00 99.8 88 18 113/72 97 Room Air 06/07/17 22:45 99.4 84 18 122/57 Room Air 06/07/17 22:30 99.1 89 18 120/58 Room Air 06/07/17 22:15 99.0 83 18 120/53 Room Air 06/07/17 22:00 99.1 90 18 128/59 Room Air 06/07/17 21:45 99.1 85 18 123/67 Room Air 06/07/17 21:29 13 18 100/55 99 Room Air 06/07/17 21:15 91 18 111/70 99 Room Air 06/07/17 21:00 78 18 111/62 99 Room Air 06/07/17 20:55 72 18 117/66 99 Room Air 06/07/17 20:50 85 18 113/67 99 Room Air 06/07/17 20:45 98 18 115/68 99 Room Air 06/07/17 20:41 89 18 114/61 99 Room Air 06/07/17 20:38 89 18 131/67 99 Room Air 06/07/17 20:35 88 18 145/77 99 Room Air 06/07/17 20:32 82 18 159/93 99 Room Air 06/07/17 20:30 98 18 148/89 99 Room Air 06/07/17 20:29 18 99 Room Air 06/07/17 20:26 88 18 146/90 99 Room Air 06/07/17 20:23 94 18 159/93 99 Room Air 06/07/17 20:15 75 18 125/68 Room Air 06/07/17 20:00 85 18 154/87 Room Air 06/07/17 19:45 75 18 139/89 Room Air 06/07/17 19:30 78 18 159/98 Room Air 06/07/17 19:15 75 18 154/91 Room Air 06/07/17 19:00 80 18 172/91 Room Air 06/07/17 18:45 73 18 141/85 Room Air 06/07/17 18:30 71 18 128/76 Room Air 06/07/17 18:15 74 18 133/75 Room Air 06/07/17 18:00 72 18 128/76 Room Air 17 17:45 73 18 122/75 Room Air 06/07/17 17:30 75 18 125/89 Room Air 06/07/17 17:15 79 18 119/84 Room Air 06/07/17 17:00 97.4 75 18 120/73 Room Air 06/07/17 16:45 73 18 122/83 Room Air 06/07/17 16:30 82 18 120/93 Room Air 06/07/17 16:15 82 18 139/64 Room Air 06/07/17 16:00 78 18 139/77 Room Air 06/07/17 15:45 78 18 129/81 Room Air 06/07/17 15:30 82 18 121/81 Room Air 06/07/17 15:15 74 18 119/77 Room Air 06/07/17 15:00 76 18 124/76 Room Air 06/07/17 14:45 79 18 124/73 Room Air 06/07/17 14:30 75 18 134/81 Room Air 06/07/17 14:15 76 18 138/81 Room Air 06/07/17 14:00 75 18 130/87 Room Air 06/07/17 13:45 81 18 130/86 Room Air 06/07/17 13:30 68 18 138/85 Room Air 06/07/17 13:15 75 18 138/90 Room Air 06/07/17 13:00 77 18 136/90 Room Air 06/07/17 12:45 69 18 134/82 Room Air 06/07/17 12:30 78 18 121/70 Room Air 06/07/17 12:15 100 18 173/96 Room Air 17 12:00 71 18 123/82 Room Air 1517 11:45 75 18 123/78 Room Air 15/17 11:30 67 18 123/78 Room Air 1517 11:15 80 18 119/80 Room Air 17 11:00 75 18 114/71 Room Air 06/07/17 10:45 73 18 125/75 Room Air 06/07/17 10:30 73 18 129/81 Room Air 06/07/17 10:15 73 18 117/71 Room Air 06/07/17 10:00 73 18 122/76 Room Air 06/07/17 09:45 73 18 122/76 Room Air 06/07/17 09:30 75 18 126/79 Room Air 06/07/17 09:00 80 18 122/81 Room Air 06/07/17 08:45 82 18 134/83 Room Air 06/07/17 08:30 88 18 130/76 Room Air 06/07/17 08:00 97.5 81 20 128/89 Room Air vital signs are stable. Patient is afebrile. Fundus is firm below the umbilicus nontender. Extremities show no clubbing cyanosis. There is no Homans sign. There is some pretibial pitting edema that is normal. Assessment and plan day number 1 status post term spontaneous vaginal delivery doing well. Plan is for routine convalescence care today and consider discharge home tomorrow June 09, 2017 This patient without complaint. She is ambulating, voiding, tolerating by mouth , has good pain control, patient is requesting discharge home. Vital Signs Date Time Temp Pulse Resp B/P (MAP) Pulse Ox O2 Delivery O2 Flow Rate FiO2 06/09/17 08:37 98.7 83 18 113/77 97 06/09/17 01:59 97.8 90 16 117/82 Room Air 06/08/17 19:55 98.4 99 16 114/80 98 Room Air 06/08/17 13:45 98.4 97 20 127/83 Room Air vital signs are stable. Patient afebrile. Fundus is firm below the umbilicus and nontender. Extreme show clubbing cyanosis. There is no Homans sign. Assessment and plan day number 2 status post term spontaneous vaginal delivery doing well. Plan is for discharge home with follow-up in clinic Final Diagnosis term spontaneous vaginal delivery at 38 weeks gestation BEATRICE HUMMEL MD Jun 09, 2017 9:42 am
== END 2017-06-09 13:00 | disposition home or self-care (01) | DRG 775 ==
LOC: LDRP 07:25
PROVIDERS: ADMIT Obstetrics & Gynecology; ATTEND Obstetrics & Gynecology
PROC: 0HQ9XZZ Repair Perineum Skin, External Approach (ICD-10-PCS; principal; 2017-06-07)
PROC: 10E0XZZ Delivery of Products of Conception, External Approach (ICD-10-PCS; 2017-06-07)
PROC: 3E033VJ Introduction of Other Hormone into Peripheral Vein, Percutaneous Approach (ICD-10-PCS; 2017-06-07)
DX: O26.833 Pregnancy related renal disease, third trimester (principal); N28.9 Disorder of kidney and ureter, unspecified; O12.14 Gestational proteinuria, complicating childbirth; O70.0 First degree perineal laceration during delivery; Z3A.38 38 weeks gestation of pregnancy; Z37.0 Single live birth; Z23 Encounter for immunization
CPT/HCPCS: 36415; 82570; 84156; 85025; 86850; 86900; 86901; 90715